=== PATIENT | female | born 1965 | race American Indian/Alaskan Native ===

== ENCOUNTER 2019-04-24 17:02 | Emergency (ER) | payer SELFPAY ==
--- NOTE | 2019-04-24 17:27 | Event Note ---
ED Screening Note ED Screening Note: pt comes to ER from dialysis because her AV fistula is not working she states it gave "black blood" HD RN sent her here Her last HD was Wed color adviser is Jair DUNLAP This initial assessment/diagnostic orders/clinical plan/treatment(s) is/are subject to change based on patients health status, clinical progression and re- assessment by fellow clinical providers in the ED. Further treatment and workup at subsequent clinical providers discretion. Patient/guardian urged not to elope from the ED as their condition may be serious if not clinically assessed and managed. Initial orders include: to ER will need to call renal MD and see if they need permacath placed
[2019-04-24 18:04] LABS: INR 1.08 (0.87-1.13)
[2019-04-24 18:05] LABS: Partial Thromboplastin Time 32.7 Sec. (24.2-36.6)
[2019-04-24 18:07] LABS: Hematocrit 35.3 % (30.3-42.9); Hemoglobin 11.1 gm/dl (10.1-14.3); Mean Corpuscular HGB Conc 32 % (30-34); Mean Corpuscular Volume 86 fl (79-97); Platelet Count 254 K/mm3 (140-440); Red Blood Count 4.12 M/mm3 (3.65-5.03); Red Cell Distribution Width 15.8 % (13.2-15.2)
--- NOTE | 2019-04-24 20:43 | Emergency Department Report ---
ED General Adult HPI - General Chief complaint: Extremity Problem,Nontraumatic Stated complaint: NEEDS DIALYSIS Time Seen by Provider: 04/24/19 17:25 Source: patient Mode of arrival: Ambulatory Limitations: No Limitations - History of Present Illness Initial comments: Mrs. Carroll is a very pleasant 54-year-old female with history of end-stage renal disease and hypertension with left upper extremity AV fistula. She presents with fistula not functioning. She receives dialysis at [facility] in [place]. According to her report, the needle just shelton out Black blood after 3 punctures. She was unable to obtain dialysis today. She has been in her normal state of health. She has mild pain at the site of puncture. Denies shortness of breath. Denies fever or abdominal pain. Bag Sewer is Dr. Hillman. AV fistula surgery performed at [facility] in 2007. -: This afternoon Location: left, upper extremity Severity scale (0 -10): 5 Quality: aching Consistency: constant Improves with: none Worsens with: none Associated Symptoms: denies other symptoms - Related Data Previous Rx's Medication Instructions Recorded Last Taken Type HYDROcodone/APAP 5-325 [Lupton 1 each PO Q6HR PRN #20 tablet 06/26/13 Unknown Rx 5/325 mg] Ondansetron [Zofran] 4 mg PO ONCE #14 tablet 06/26/13 Unknown Rx Allergies Allergy/AdvReac Type Severity Reaction Status Date / Time No Known Allergies Allergy Unverified 06/26/13 05:03 ED Review of Systems ROS: Stated complaint: NEEDS DIALYSIS Other details as noted in HPI Comment: All other systems reviewed and negative Constitutional: denies: diaphoresis, fever, malaise Respiratory: denies: cough Cardiovascular: denies: chest pain ED Past Medical Hx - Past Medical History Previous Medical History?: Yes Hx Hypertension: Yes Hx Renal Disease: Yes Additional medical history: ESRD/DIALYSIS, M, W, F - Surgical History Past Surgical History?: Yes Additional Surgical History: Left AV fistula, C section - Social History Smoking Status: Never Smoker Substance Use Type: None - Medications Home Medications: Home Medications Medication Instructions Recorded Confirmed Last Taken Type HYDROcodone/APAP 5-325 [Lupton 1 each PO Q6HR PRN #20 tablet 06/26/13 Unknown Rx 5/325 mg] Ondansetron [Zofran] 4 mg PO ONCE #14 tablet 06/26/13 Unknown Rx ED Physical Exam - General Limitations: No Limitations General appearance: alert, in no apparent distress, other (healthy, well appearing) - Head Head exam: Present: atraumatic, normocephalic - Eye Eye exam: Present: normal appearance - ENT ENT exam: Present: mucous membranes moist - Neck Neck exam: Present: normal inspection, full ROM - Respiratory Respiratory exam: Present: normal lung sounds bilaterally. Absent: respiratory distress, wheezes, rales, rhonchi - Cardiovascular Cardiovascular Exam: Present: regular rate, normal rhythm, normal heart sounds. Absent: systolic murmur, diastolic murmur, rubs, gallop - GI/Abdominal GI/Abdominal exam: Present: soft, normal bowel sounds. Absent: distended, tenderness, guarding, rebound - Extremities Exam Extremities exam: Present: other (LUE: pulsatile AV fistula with small bandage). Absent: pedal edema - Neurological Exam Neurological exam: Present: alert, oriented X3 - Psychiatric Psychiatric exam: Present: normal affect, normal mood - Skin Skin exam: Present: warm, dry, intact, normal color. Absent: rash ED Course Vital Signs 04/24/19 17:29 Temperature 98.2 F Pulse Rate 89 Respiratory 16 Rate Blood Pressure 163/86 O2 Sat by Pulse 99 Oximetry ED Medical Decision Making - Lab Data Result diagrams: 04/24/19 17:40 04/24/19 17:40 Laboratory Results - last 24 hr 04/24/19 04/24/19 04/24/19 17:40 17:40 17:40 WBC 8.7 RBC 4.12 Hgb 11.1 Hct 35.3 MCV 86 MCH 27 L MCHC 32 RDW 15.8 H Plt Count 254 PT 13.7 INR 1.08 APTT 32.7 Sodium 139 Potassium 5.5 H Chloride 96.6 L Carbon Dioxide 21 L Anion Gap 27 BUN 58 H Creatinine 13.4 H Estimated GFR 3 BUN/Creatinine Ratio 4 Glucose 87 Calcium 10.0 - Medical Decision Making Mrs. Carroll presents from HD clinic for nonfunctioning fistula. I spoke with Dr. Yu level vial curvature gauger assistant plant control operator. He explained that Mrs. Carroll will need a fistulogram. However since Mrs. Carroll's AV access has thrill and bruit, Dr. Yu suspects that the access will function. Her personal level vial curvature gauger Dr. Hillman advised that Mrs. Carroll returns to the hemodialysis clinic in the morning. She will have a different nurse cannulate and accessed the fistul a. According to Dr. Yu's instruction, I have provided 30 g of Kayexalate to address the elevated potassium. Mrs. Carroll is discharged home. She understood instructions. Critical care attestation.: If time is entered above; I have spent that time in minutes in the direct care of this critically ill patient, excluding procedure time. ED Disposition Clinical Impression: Dialysis AV fistula malfunction, End stage renal disease Disposition: DC-[id number] TO HOME OR SELFCARE Is pt being admited?: No Does the pt Need Aspirin: No Condition: Stable Additional Instructions: Please return to your dialysis clinic in [place] tomorrow morning to have dialysis.
[2019-04-24] MEDS ORDERED: KIONEX PO ONE (20:49)
[2019-04-24 21:50] VITALS: BP 140/72
== END 2019-04-24 21:00 | disposition home or self-care (01) ==
LOC: ED 17:02
DX: T82.898A Other specified complication of vascular prosthetic devices, implants and grafts, initial encounter (principal); I12.0 Hypertensive chronic kidney disease with stage 5 chronic kidney disease or end stage renal disease; N18.6 End stage renal disease; Z99.2 Dependence on renal dialysis; Y92.89 Other specified places as the place of occurrence of the external cause
CPT/HCPCS: 36415; 80048; 85027; 85610; 85730

== ENCOUNTER 2021-08-03 08:56 | Outpatient (CLI) | payer MEDICARE ==
--- NOTE | 2021-08-03 11:06 | Mammography Report ---
DIGITAL SCREENING MAMMOGRAM WITH CAD, 08/03/2021 CLINICAL INFORMATION / INDICATION: Routine screening mammography. SCREENING MAMMOGRAM TECHNIQUE: Digital bilateral 2D mammography was obtained in the craniocaudal and mediolateral obliqu e projections. This examination was interpreted with the benefit of Computer-Aided Detection analysis . COMPARISON: None. FINDINGS: Breast Density: The breasts are extremely dense, which lowers the sensitivity of mammography. No dominant mass, suspicious calcifications, or architectural distortion in either breast. IMPRESSION: No mammographic evidence of malignancy. Follow up recommendation: Routine yearly BI-RADS Category 1: Negative. A "normal" or negative report should not discourage follow up or biopsy of a clinically significant f inding. A written summary of these findings will be mailed to the patient. The patient will be entered into a mammography reporting system which will generate a reminder letter for the patient's next appointmen t at the appropriate interval. The [employer] recommends yearly mammograms starting at age 40 and continuing as l lili as a woman is in good health. Breast MRI is recommended for women with an approximate 20-25% or greater lifetime risk of breast cancer, including women with a strong family history of breast or ova kinza cancer or who have been treated for Hodgkin's disease. Signer Name: Sanket Patino MD Signed: 08/03/2021 11:01 AM Workstation Name: [id number]
== END 2021-08-03 08:57 | disposition home or self-care (01) ==
LOC: MAMMO 08:56
PROVIDERS: ATTEND Nurse Practitioner Acute Care
DX: Z12.31 Encounter for screening mammogram for malignant neoplasm of breast (principal)
CPT/HCPCS: 77067